=== PATIENT | female | born 1990 | race Caucasian/White ===

== ENCOUNTER 2022-02-13 16:04 | Emergency (ER) | payer OTHER ==
[2022-02-13] MEDS ORDERED: IBUPROFEN600 MG PO (18:58)
[2022-02-13] MEDS ORDERED: AMOX TR-K CLV1 EAC4 PO (18:58)
[2022-02-13] MEDS ORDERED: BACTROBAN OINT22 GM EXT (18:58)
== END 2022-02-13 19:24 | disposition home or self-care (01) ==
LOC: ER1 16:04
DX: S71.152A Open bite, left thigh, initial encounter (principal); S71.151A Open bite, right thigh, initial encounter; S81.852A Open bite, left lower leg, initial encounter; W54.0XXA Bitten by dog, initial encounter; F17.210 Nicotine dependence, cigarettes, uncomplicated; Z23 Encounter for immunization; Y92.009 Unspecified place in unspecified non-institutional (private) residence as the place of occurrence of the external cause
CPT/HCPCS: 12001; 90471; 90715; 99283